=== PATIENT | male | born 1975 | race Caucasian/White ===

== ENCOUNTER 2018-05-17 10:19 | Emergency (ER) | payer SELFPAY ==
--- NOTE | 2018-05-17 10:41 | EDM.PDOC ---
ED HPI GENERAL MEDICAL PROBLEM - General Chief Complaint: Back Pain or Injury Stated Complaint: BACK PAIN Time Seen by Provider: 05/17/18 10:41 Source of Information: Reports: Patient History Limitations: Reports: No Limitations - History of Present Illness INITIAL COMMENTS - FREE TEXT/NARRATIVE: HISTORY AND PHYSICAL: History of present illness: Patient is a 43-year-old male here with complaint of low back pain. It began about 2-3 days ago, denies any recent injury or trauma. He states he did fall off of a ladder a couple of years ago ruptured kidney at that time. He denies any numbness or tingling down the legs, denies saddle anesthesia, loss of bowel or bladder control, lower extremity weakness, fevers or chills. Denies dysuria or hematuria. He is not taking anything OTC for his symptoms Review of systems: As per history of present illness and below otherwise all systems reviewed and negative. Past medical history: As per history of present illness and as reviewed below otherwise noncontributory. Surgical history: As per history of present illness and as reviewed below otherwise noncontributory. Social history: No reported history of drug or alcohol abuse. Family history: As per history of present illness and as reviewed below otherwise noncontributory. Physical exam: General: Patient sitting comfortably in no acute distress and nontoxic appearing HEENT: Atraumatic, normocephalic, pupils reactive, negative for conjunctival pallor or scleral icterus, mucous membranes moist, throat clear, neck supple, nontender, trachea midline. No meningeal signs. Lungs: Clear to auscultation, breath sounds equal bilaterally, chest nontender. Heart: S1S2, regular, negative for clicks, rubs, or overt murmur. Abdomen: Soft, nondistended, nontender. Negative for masses or hepatosplenomegaly. Negative for costovertebral tenderness. No rigidity, rebound , guarding. Pelvis: Stable nontender. Genitourinary: Deferred. Rectal: Deferred. Spine: No vertebral tenderness or step offs to palpation. Bilateral lumbar paraspinal tenderness to palpation. Extremities: Atraumatic, negative for cords or calf pain. Neurovascular unremarkable. Neuro: Awake, alert, oriented. Cranial nerves II through XII unremarkable. Cerebellum unremarkable. Motor and sensory unremarkable throughout. Exam nonfocal. Notes: Diagnostics: [employer]: Toradol 60mg IM Prescriptions: Tramadol (#12) Impression: Lumbar back pain Plan: 1. Heat or ice and alternate tylenol and motrin as needed. You may take tramadol as needed for severe pain, do not take while driving as it may make you drowsy. 2. Follow up with primary care provider 3. Return to ED as needed as discussed Definitive disposition and diagnosis as appropriate pending reevaluation and review of above. Lower Back Pain Score (Numeric/FACES): 7 - Related Data Allergies Allergy/AdvReac Type Severity Reaction Status Date / Time No Known Allergies Allergy Verified 05/17/18 10:31 Home Meds: Home Meds . [No Known Home Meds] 12/15/17 [History] Past Medical History - Past Health History Medical/Surgical History: Denies Medical/Surgical History Genitourinary History: Reports: Other (See Below) Other Genitourinary History: Hx of ruptured kidney - Infectious Disease History Infectious Disease History: Reports: Hepatitis C Social & Family History - Family History Family Medical History: Noncontributory - Tobacco Use Smoking Status *Q: Current Every Day Smoker Years of Tobacco use: 20 Packs/Tins Daily: 1 - Caffeine Use Caffeine Use: Reports: Soda - Recreational Drug Use Recreational Drug Use: No ED ROS GENERAL - Review of Systems Review Of Systems: ROS reveals no pertinent complaints other than HPI. ED EXAM,LOWER BACK PAIN/INJURY - Physical Exam Exam: See Below (see dictation) Course - Vital Signs Last Recorded V/S: Last Vital Signs Temp 97.4 F 05/17/18 10:28 Pulse 98 05/17/18 10:28 Resp 18 05/17/18 10:28 BP 111/74 05/17/18 10:28 Pulse Ox 96 05/17/18 10:28 - Orders/Labs/Meds Labs: Laboratory Tests 05/17/18 Range/Units 11:05 Urine Color YELLOW Urine Appearance CLEAR Urine pH 5.5 (5.0-8.0) Ur Specific Wilson >= 1.030 (1.001-1.035) Urine Protein NEGATIVE (NEGATIVE) mg/dL Urine Glucose (UA) NEGATIVE (NEGATIVE) mg/dL Urine Ketones NEGATIVE (NEGATIVE) mg/dL Urine Occult Blood NEGATIVE (NEGATIVE) Urine Nitrite NEGATIVE (NEGATIVE) Urine Bilirubin NEGATIVE (NEGATIVE) Urine Urobilinogen 0.2 (<2.0) EU/dL Ur Leukocyte Esterase NEGATIVE (NEGATIVE) Meds: Medications Discontinued Medications Generic Name Dose Route Start Last Admin Trade Name Jaron PRN Reason Stop Dose Admin Ketorolac Tromethamine 60 mg 05/17/18 10:46 05/17/18 11:09 Toradol IM 05/17/18 10:47 60 mg ONETIME ONE Administration Departure - Departure Time of Disposition: 11:39 Disposition: Home, Self-Care 01 Condition: Good Clinical Impression: Lumbar back pain - Discharge Information Referrals: PCP,None [Primary Care Provider] - Forms: ED Department Discharge Additional Instructions: The following information is given to patients seen in the emergency department who are being discharged to home. This information is to outline your options for follow-up care. We provide all patients seen in our emergency department with a follow-up referral. The need for follow-up, as well as the timing and circumstances, are variable depending upon the specifics of your emergency department visit. If you don't have a primary care physician on staff, we will provide you with a referral. We always advise you to contact your personal physician following an emergency department visit to inform them of the circumstance of the visit and for follow-up with them and/or the need for any referrals to a consulting specialist. The emergency department will also refer you to a specialist when appropriate. This referral assures that you have the opportunity for follow-up care with a specialist. All of these measure are taken in an effort to provide you with optimal care, which includes your follow-up. Under all circumstances we always encourage you to contact your private physician who remains a resource for coordinating your care. When calling for follow-up care, please make the office aware that this follow-up is from your recent emergency room visit. If for any reason you are refused follow-up, please contact the [facility] Emergency Department at and asked to speak to the emergency department charge nurse. [facility] [address] [place] [id number] [facility] [address] [place] [id number] 1. Heat or ice and alternate tylenol and motrin as needed. You may take tramadol as needed for severe pain, do not take while driving as it may make you drowsy. 2. Follow up with primary care provider 3. Return to ED as needed as discussed
[2018-05-17] MEDS ORDERED: Ketorolac 60 MG/2 ML SDV IM ONE (10:46)
== END 2018-05-17 11:49 | disposition home or self-care (01) ==
LOC: MW.ED 10:19
DX: M54.5 Low back pain (principal); F17.210 Nicotine dependence, cigarettes, uncomplicated
CPT/HCPCS: 81003; 96372; 99283; J1885

== ENCOUNTER 2019-01-09 05:02 | Emergency (ER) | payer OTHER ==
[2019-01-09] MEDS ORDERED: Ondansetron 4 MG/2 ML SDV IVPUSH ONE (05:13)
[2019-01-09] MEDS ORDERED: Sodium Chloride 0.9% 10 ML Syringe FLUSH PRN (05:13)
[2019-01-09] MEDS ORDERED: Sodium Chloride 0.9% 2.5 ML Syringe FLUSH PRN (05:13)
[2019-01-09] MEDS ORDERED: Sodium Chloride 0.9% 1,000 ML IV ONE (05:13)
[2019-01-09] MEDS ORDERED: Ketorolac 30 MG/ML SDV IVPUSH ONE (05:13)
[2019-01-09] MEDS ORDERED: HYDROmorphone 1 MG/ML Syringe IVPUSH ONE (05:13)
--- NOTE | 2019-01-09 05:14 | EDM.PDOC ---
<Rosey Lee - Last Filed: 01/09/19 06:48> ED HPI GENERAL MEDICAL PROBLEM - General Chief Complaint: Lower Extremity Injury/Pain Stated Complaint: AMB Time Seen by Provider: 01/09/19 05:04 - History of Present Illness INITIAL COMMENTS - FREE TEXT/NARRATIVE: HISTORY AND PHYSICAL: History of present illness: The patient is a 43-year-old male with no significant past medical history who presents via EMS with complaints of severe pain to his left knee that started after a fall this evening at 8 PM, approximately 9 hours ago. 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 He did not pass out or black out and has no head neck or back pain and has no chest pain no shortness of breath no abdominal pain or pelvis pain. He says he only had pain at his knee and he was able to get home and went and laid on the sofa and fell asleep but did not take any medications. He has been on the sofa since he got home and he previously ambulated on this knee. He called EMS due to the severe pain and they gave him intranasal fentanyl. The patient denies that he has pain at his hip or pelvis and only has pain at the distal femur and knee area. He has no ankle or foot pain and he has no sensory changes in his distal leg and foot. He has no other extremity complaints. Prior to these events last evening he was in his usual state of good health with no systemic complaints. He specifically tells me he does not have pain in his calcaneus. He says that any movement of his knee causes severe pain which radiates up and down his leg. Review of systems: As per history of present illness and below otherwise all systems reviewed and negative. Past medical history: As per history of present illness and as reviewed below otherwise noncontributory. Surgical history: As per history of present illness and as reviewed below otherwise noncontributory. Social history: No reported history of drug or alcohol abuse. Family history: As per history of present illness and as reviewed below otherwise noncontributory. Physical exam: General: Well-developed well-nourished thin man who is nontoxic and cooperative in the ED. Vital signs are noted by me HEENT: Atraumatic, normocephalic, pupils reactive, negative for conjunctival pallor or scleral icterus, mucous membranes moist, throat clear, neck supple, nontender, trachea midline. There are no evidence of any scalp defects deformities or tenderness and there is no midline step-offs tenderness defects of the cervical spine. There is no evidence of any facial injuries tenderness defects or deformities teeth and bite are intact as well as EOMs. Lungs: Clear to auscultation, breath sounds equal bilaterally, chest nontender. There are no defects deformities crepitus appreciated on the chest wall and no soft tissue injuries are seen Heart: S1S2, regular rate and rhythm no overt murmurs, negative for clicks, rubs , or JVD. Abdomen: Soft, nondistended, nontender. Negative for masses or hepatosplenomegaly. Negative for costovertebral tenderness. Pelvis: Stable nontender. There is no tenderness at the lateral left hip Genitourinary: Deferred. Rectal: Deferred. Extremities: At the right elbow there is a superficial abrasion but there is no soft tissue swelling palpable bony defects or deformities and only minimal tenderness here. At the left lower extremity there is no discrete hip or proximal femur tenderness in the thigh compartment is soft and not swollen, at the knee there is diffuse soft tissue swelling and effusion appreciated with exquisite tenderness but no malalignment is appreciated and deep palpation of the bony architecture is not possible due to patient's inability to tolerate the exam, distal tib-fib ankle foot calcaneus and talus are all intact without tenderness defects or deformities as are the toes. The only swelling is seen diffusely and circumferentially at the knee. Throughout the entire left lower extremity there is no evidence of any gross malalignment. The remainder the extremities have full range of motion without tenderness defects or deformities. The legs are negative for cords or calf pain. Neurovascular unremarkable. The dorsalis pedis and Posterior tibial artery is triphasic by Doppler and there is good cap refill and normal temperature in the ankle and foot. Neuro: Awake, alert, oriented. Cranial nerves II through XII unremarkable. Motor and sensory unremarkable throughout. Exam nonfocal. Back: There are no midline step-offs tenderness defects of the thoracic or lumbar spine no posterior rib or posterior pelvis tenderness and no soft tissue injuries are appreciated Diagnostics: X-ray of the pelvis left femur left knee left tib-fib The patient declined a right elbow x-ray Therapeutics: IV placement IV fluids Dilaudid Xiomarafran [id number]: Pictures of the patient's knee x-rays were sent to our orthopedic surgeon regional liaison Dr. Golden and after review he would like a CT scan to be performed as he is not sure what the appropriate treatment will be with those x-rays alone. I will endorse this case to Dr. Molina who will follow up the CT scan and call with that report. Impression: Fall with left knee injury Definitive disposition and diagnosis as appropriate pending reevaluation and review of above. left knee Pain Score (Numeric/FACES): 10 - Related Data Allergies Allergy/AdvReac Type Severity Reaction Status Date / Time No Known Allergies Allergy Verified 01/09/19 05:20 Home Meds: Home Meds traMADol HCl [Tramadol HCl] 50 mg PO Q6H PRN #16 tablet 01/09/19 [Rx] Past Medical History - Past Health History Medical/Surgical History: Denies Medical/Surgical History Genitourinary History: Reports: Other (See Below) Other Genitourinary History: Hx of ruptured kidney - Infectious Disease History Infectious Disease History: Reports: Hepatitis C Social & Family History - Family History Family Medical History: Noncontributory - Caffeine Use Caffeine Use: Reports: Soda Review of Systems - Review of Systems Review Of Systems: ROS reveals no pertinent complaints other than HPI. ED EXAM, GENERAL - Physical Exam Exam: See Below (See dictation) Course - Vital Signs Last Recorded V/S: Last Vital Signs Temp 97.7 F 01/09/19 05:02 Pulse 74 01/09/19 06:08 Resp 18 01/09/19 06:08 BP 121/70 01/09/19 06:08 Pulse Ox 96 01/09/19 06:08 - Orders/Labs/Meds Orders: Active Orders 24 hr Category Date Time Status Sodium Chloride 0.9% [Saline Flush] Med 01/09/19 05:13 Active 10 ml FLUSH ASDIRECTED PRN Sodium Chloride 0.9% [Saline Flush] Med 01/09/19 05:13 Active 2.5 ml FLUSH ASDIRECTED PRN Saline Lock Insert [OM.PC] Stat Oth 01/09/19 05:13 Ordered Medication Orders Sodium Chloride (Saline Flush) 10 ml FLUSH ASDIRECTED PRN PRN Reason: Keep Vein Open Sodium Chloride (Saline Flush) 2.5 ml FLUSH ASDIRECTED PRN PRN Reason: Keep Vein Open Meds: Medications Generic Name Dose Route Start Last Admin Trade Name Freq PRN Reason Stop Dose Admin Sodium Chloride 10 ml 01/09/19 05:13 Saline Flush FLUSH ASDIRECTED PRN Keep Vein Open Sodium Chloride 2.5 ml 01/09/19 05:13 Saline Flush FLUSH ASDIRECTED PRN Keep Vein Open Discontinued Medications Generic Name Dose Route Start Last Admin Trade Name Freq PRN Reason Stop Dose Admin Hydromorphone HCl 1 mg 01/09/19 05:13 01/09/19 06:08 Dilaudid IVPUSH 01/09/19 05:14 1 mg ONETIME ONE Administration Sodium Chloride 1,000 mls @ 999 mls/hr 01/09/19 05:13 01/09/19 06:08 Normal Saline IV 01/09/19 06:13 999 mls/hr STAT ONE Administration Ketorolac Tromethamine 30 mg 01/09/19 05:13 01/09/19 06:08 Toradol IVPUSH 01/09/19 05:14 30 mg ONETIME ONE Administration Ondansetron HCl 4 mg 01/09/19 05:13 01/09/19 06:08 Zofran IVPUSH 01/09/19 05:14 4 mg ONETIME ONE Administration Departure - Departure Disposition: Home, Self-Care 01 Condition: Good Clinical Impression: Tibial plateau fracture, left Qualifiers: Encounter type: initial encounter Fracture type: closed Qualified Code(s): S82.142A - Displaced bicondylar fracture of left tibia, initial encounter for closed fracture Fracture, fibula, proximal Qualifiers: Encounter type: initial encounter Fracture type: closed Fracture morphology: unspecified fracture morphology Laterality: left Qualified Code(s): S82.832A - Other fracture of upper and lower end of left fibula, initial encounter for closed fracture - Discharge Information Prescriptions: traMADol HCl [Tramadol HCl] 50 mg PO Q6H PRN #16 tablet PRN Reason: Pain Referrals: Glen Golden MD [Physician] - 01/11/19 9:30 am Forms: ED Department Discharge Additional Instructions: The following information is given to patients seen in the emergency department who are being discharged to home. This information is to outline your options for follow-up care. We provide all patients seen in our emergency department with a follow-up referral. The need for follow-up, as well as the timing and circumstances, are variable depending upon the specifics of your emergency department visit. If you don't have a primary care physician on staff, we will provide you with a referral. We always advise you to contact your personal physician following an emergency department visit to inform them of the circumstance of the visit and for follow-up with them and/or the need for any referrals to a consulting specialist. The emergency department will also refer you to a specialist when appropriate. This referral assures that you have the opportunity for follow-up care with a specialist. All of these measure are taken in an effort to provide you with optimal care, which includes your follow-up. Under all circumstances we always encourage you to contact your private physician who remains a resource for coordinating your care. When calling for follow-up care, please make the office aware that this follow-up is from your recent emergency room visit. If for any reason you are refused follow-up, please contact the [facility] Emergency Department at and asked to speak to the emergency department charge nurse. Take meds as directed, follow up with your primary care physician, return to ER if symptoms worsen or change. [facility] - [facility] [address], [address] [place] [address] <Urmila Molina - Last Filed: 01/09/19 09:03> ED HPI GENERAL MEDICAL PROBLEM - History of Present Illness INITIAL COMMENTS - FREE TEXT/NARRATIVE: CT OF LEFT KNEE SHOWS TIBIAL PLATEAU AND SMALL FIBULA FRACTURE THAT'S NONDISPLACED, DR. MALAGON WAS CONSULTED AND HE LOOKED AT THE FILMS AND REQUESTED PATIENT BE PUT IN A HINGED KNEE IMMOBILIZER FROM [place], KEPT NONWEIGHTBEARINGAND TO FOLLOW-UP IN HIS OFFICE IN 2 DAYS. sHE IS BEING DISCHARGED WITH CRUTCHES, BRACE AND TRAMADOL. Departure - Departure Time of Disposition: 09:02 - Discharge Information *PRESCRIPTION DRUG MONITORING PROGRAM REVIEWED*: Not Applicable *COPY OF PRESCRIPTION DRUG MONITORING REPORT IN PATIENT JESSIE: Not Applicable
--- NOTE | 2019-01-09 06:47 | CR ---
INDICATION: Fall. TECHNIQUE: Two views pelvis. Three views left femur. Three views left knee. Four views left tibia and fibula. FINDINGS: Mildly displaced acute comminuted fracture left proximal fibula. Linear lucency along the articular surface of the left lateral tibial plateau and ill-defined irregular lucency involving the left lateral tibial plateau only seen on the frontal view is suggestive of a fracture of the left lateral tibial plateau. If clinically desired to further evaluate the knee pathology more accurately a CT could be performed. No other acute fracture or dislocation in the pelvis, left femur, left knee, left tibia, or left fibula. Small area of sclerosis in right mid to upper iliac bone versus small overlying opaque density. Marked soft tissue swelling distal left thigh anteriorly extending to the anterior left knee the lesser extent. Large sized left knee effusion. Dictated by Kee Starr MD @ Jan 09 2019 6:39AM Signed by Dr. Kee Starr @ Jan 09 2019 6:46AM
--- NOTE | 2019-01-09 06:49 | CR ---
INDICATION: Fall. TECHNIQUE: Two views pelvis. Three views left femur. Three views left knee. Four views left tibia and fibula. FINDINGS: Mildly displaced acute comminuted fracture left proximal fibula. Linear lucency along the articular surface of the left lateral tibial plateau and ill-defined irregular lucency involving the left lateral tibial plateau only seen on the frontal view is suggestive of a fracture of the left lateral tibial plateau. If clinically desired to further evaluate the knee pathology more accurately a CT could be performed. No other acute fracture or dislocation in the pelvis, left femur, left knee, left tibia, or left fibula. Small area of sclerosis in right mid to upper iliac bone versus small overlying opaque density. Marked soft tissue swelling distal left thigh anteriorly extending to the anterior left knee the lesser extent. Large sized left knee effusion. Dictated by Kee Starr MD @ Jan 09 2019 6:48AM Signed by Dr. Kee Starr @ Jan 09 2019 6:48AM
--- NOTE | 2019-01-09 06:49 | CR ---
INDICATION: Fall. TECHNIQUE: Two views pelvis. Three views left femur. Three views left knee. Four views left tibia and fibula. FINDINGS: Mildly displaced acute comminuted fracture left proximal fibula. Linear lucency along the articular surface of the left lateral tibial plateau and ill-defined irregular lucency involving the left lateral tibial plateau only seen on the frontal view is suggestive of a fracture of the left lateral tibial plateau. If clinically desired to further evaluate the knee pathology more accurately a CT could be performed. No other acute fracture or dislocation in the pelvis, left femur, left knee, left tibia, or left fibula. Small area of sclerosis in right mid to upper iliac bone versus small overlying opaque density. Marked soft tissue swelling distal left thigh anteriorly extending to the anterior left knee the lesser extent. Large sized left knee effusion. Dictated by Kee Starr MD @ Jan 09 2019 6:47AM Signed by Dr. Kee Starr @ Jan 09 2019 6:47AM
--- NOTE | 2019-01-09 08:05 | CT ---
INDICATION: Pain after injury. Assess fracture. COMPARISON: Plain film 09 January 2019. TECHNIQUE: Multi detector imaging left knee with axial, coronal and sagittal reformats. FINDINGS: Large lipohemarthrosis. Intact femur and patella. Comminuted mildly impacted fracture through the central plateau and lateral plateau of the tibia. Minimal 1 mm step-off incongruity in the base of the lateral spine up to 5 mm concave depression through the anterior lateral margin of the plateau with slight anterior downsloping. Nondisplaced fracture line extends across to the base of the medial spine but not into the medial plateau. Fracture is intra-articular to the knee as well as the proximal tibiofibular joint. Burst type fracture of the fibular head with incongruity of the joint from buckling of the tibial cortex as well as depression of the fibular cortex. No intra-articular fragment appreciated. Vertical extension of the tibial fracture at the anterior lateral margin extends roughly 3.8 cm from the tibial plateau. IMPRESSION: 1. Comminuted mildly impacted intra-articular fracture of the lateral tibial plateau. 2. Burst type fracture of the fibular head with moderate incongruity of the proximal tibia fibular joint. 3. Large lipohemarthrosis. Please note that all CT scans at this facility use dose modulation, iterative reconstruction, and/or weight-based dosing when appropriate to reduce radiation dose to as low as reasonably achievable. Dictated by Grupo Barbosa MD @ Jan 09 2019 8:19AM Signed by Dr. Grupo Barbosa @ Jan 09 2019 8:19AM
== END 2019-01-09 09:19 | disposition home or self-care (01) ==
LOC: MW.ED 05:02
DX: S82.142A Displaced bicondylar fracture of left tibia, initial encounter for closed fracture (principal); S82.832A Other fracture of upper and lower end of left fibula, initial encounter for closed fracture; W11.XXXA Fall on and from ladder, initial encounter; Y92.89 Other specified places as the place of occurrence of the external cause; Y93.89 Activity, other specified; Y99.0 Civilian activity done for income or pay
CPT/HCPCS: 72170; 73552; 73562; 73590; 73700; 96361; 96374; 96375; 99284; J1170; J1885; J2405; J7040

== ENCOUNTER 2020-03-08 18:45 | Emergency (ER) | payer SELFPAY ==
[2020-03-08] MEDS ORDERED: Moxifloxacin 0.5% Ophth Soln 3 ML Bottle EYELF ONE (20:03)
--- NOTE | 2020-03-08 20:33 | EDM.PDOC ---
ED HPI GENERAL MEDICAL PROBLEM - General Chief Complaint: Eye Problems Stated Complaint: LT EYE PROBLEM Time Seen by Provider: 03/08/20 20:00 - History of Present Illness INITIAL COMMENTS - FREE TEXT/NARRATIVE: HISTORY AND PHYSICAL: History of present illness: This is a healthy 45-year-old gentleman who presents ER today with loss of vision in his left eye and recurrence of a left corneal ulcer. Patient reports approximately 3 months ago he accidentally injured his left eye with a razor while cutting an object. He reports that he went to see an eye doctor, he believes it was Dr. Mckay, who gave him an antibiotic drop to place in his eye every hour and most followed closely by Dr. Mckay until resolution of the infection. Patient reports that he has been doing well for the last several weeks. He reports that yesterday night prior to going to sleep he felt a little bit of irritation in his left eye when he woke up this morning he had a significant amount of opacification and loss of vision to his left eye. 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 Patient reports no significant discomfort to his eye. Patient denies any recent trauma to the eye. Patient denies any recent fevers, shakes, chills, nausea, vomiting, diarrhea. Patient denies any abdominal pain or chest pain. Patient denies any history of hypertension, diabetes, liver, lung, kidney problems. Patient has no known drug allergies. Patient denies any alcohol or drugs. Review of systems: As per history of present illness and below otherwise all systems reviewed and negative. Past medical history: As per history of present illness and as reviewed below otherwise noncontributory. Surgical history: As per history of present illness and as reviewed below otherwise noncontributory. Social history: No reported history of drug or alcohol abuse. Family history: As per history of present illness and as reviewed below otherwise noncontributory. Physical exam: Constitutional: Patient is oriented to person, place, and time. Appears well- developed and well-nourished. No distress. HEENT: Moist mucous membranes Head: Normocephalic and atraumatic Eyes: Right eye exhibits no discharge. Left eye exhibits no discharge. No scleral icterus Neck: Normal range of motion. No tracheal deviation present. Cardiovascular: Normal rate and regular rhythm. Pulmonary: Effort normal, no respiratory distress. Abdominal: No distention Musculoskeletal: Normal range of motion Neurologic: Alert and oriented to person, place and time. Skin: [place], warm and dry. Psychiatric: Normal mood and affect. Behavior is normal. Judgment and thought content normal. Nursing note and vital signs have been reviewed Patient's ER physical exam is significant for a ulcerative lesion to his left cornea which is slightly inferior to his iris. It does appear that his iris is involved as it is extremely difficult to visualize the iris itself. Patient's pupil is 2 mm and sluggishly reactive to light. Patient has no edema identified to his lids. Patient has no drainage from his eye. Patient reports he is only able to identify light and dark. He is unable to visualize anything other than shining a light in his eye. This patient was seen and evaluated during the 2019 SARS-CoV-2 novel coronavirus pandemic period. Community viral transmission is ongoing at time of this encounter and the emergency department is operating under pandemic response procedures. Therapeutics: Vigamox 2 drops to left eye. Assessment and plan: I have attempted to contact Dr. Miller, Dr. Ayala, and Dr. Mckay for assistance with this patient however, they were not on-call and no answers on the cell phone was obtained. We did call [facility] and spoke to Dr. Nicolas Mayo he was able to assist us with preliminary care of this patient. Dr. Mayo has recommended that the patient get started on Vigamox 2 drops every 1 hour until he is reevaluated by an commercial food instructor. Dr. Mayo has recommended the patient follow-up with his primary commercial food instructor, Dr. Mckay tomorrow morning. If he is unable to be seen by Dr. Mckay tomorrow morning, Dr. Mayo would be happy to see him in his office however is [facility]. Dr. Nicolas Mayo's office phone number is [phone]. Patient has been instru cted to call Dr. Mckay in the morning for an appointment. If he is unable to be seen that he is to call Dr. Mayo and they will ensure continuity of care tomorrow. He has also been instructed on the importance of taking his medication every hour. He has been instructed to set his alarm clock this evening that he wakes up every hour to take his antibiotic drop. Patient reports that this is what he had to do 3 months ago with his prior infection and he does not anticipate any issue with compliance with medication. Reassessment at the time of disposition demonstrates that the patient is in no acute distress. The patient has remained stable throughout the entire ED visit and is without objective evidence for acute process requiring urgent intervention or hospitalization. The patient is stable for discharge, counseling is provided as documented above, discussed symptomatic treatment and specific conditions for return. I have spoken with the patient/caregiver and discussed todays findings, in addition to providing specific details for the plan of care. Questions are answered and there is agreement with the plan. Definitive disposition and diagnosis as appropriate pending reevaluation and review of above. March 09, 2020 7:28 PM: Phone call follow-up made in order to assure continuity of care. No answer. Voice message left to call if unable to make an appointment to see his eye doctor. L headache Pain Score (Numeric/FACES): 8 - Related Data Allergies Allergy/AdvReac Type Severity Reaction Status Date / Time No Known Allergies Allergy Verified 03/08/20 18:51 Home Meds: Home Meds . [No Known Home Meds] 03/08/20 [History] Past Medical History - Past Health History Medical/Surgical History: Denies Medical/Surgical History Other HEENT History: eye injury Genitourinary History: Reports: Other (See Below) Other Genitourinary History: Hx of ruptured kidney Other Musculoskeletal History: broken L knee - Infectious Disease History Infectious Disease History: Reports: Hepatitis C Social & Family History - Family History Family Medical History: No Pertinent Family History - Caffeine Use Caffeine Use: Reports: Soda - Recreational Drug Use Recreational Drug Use: No ED ROS GENERAL - Review of Systems Review Of Systems: See Below ED EXAM GENERAL W FULL EYE - Physical Exam Exam: See Below Course - Vital Signs Last Recorded V/S: Last Vital Signs Temp 98.2 F 03/08/20 20:47 Pulse 95 03/08/20 20:47 Resp 18 03/08/20 20:47 BP 132/78 03/08/20 20:47 Pulse Ox 99 03/08/20 20:47 - Orders/Labs/Meds Meds: Medications Discontinued Medications Generic Name Dose Route Start Last Admin Trade Name Freq PRN Reason Stop Dose Admin Moxifloxacin HCl 2 ml 03/08/20 20:03 03/08/20 20:17 Vigamox 0.5% Tyler Rush EYELF 03/08/20 20:04 2 drop ONETIME ONE Administration Departure - Departure Time of Disposition: 20:34 Disposition: Home, Self-Care 01 Condition: Good Clinical Impression: Corneal ulcer - Discharge Information Instructions: Corneal Ulcer Referrals: PCP,None [Primary Care Provider] - Forms: ED Department Discharge Additional Instructions: You were seen and evaluated in the ER today secondary to a corneal ulcer. I have discussed your case with Dr. Mayo at [facility] in [place]. He has recommended that we start you on Vigamox drops. You will have to take 2 drops every hour until you are reevaluated by the eye doctor. This means that you will need to set your alarm clock tonight for every hour in order to get the medication. This is extremely important to decrease the likelihood of losing her eye completely. He is also recommended that you absolutely must see an eye doctor tomorrow. We recommend that you call your prior commercial food instructor, Dr. Mckay at [phone] in the morning to see if they can see you tomorrow. If for any reason Dr. Mckay is unable to see you, Dr. Mayo said that he would be more than happy to see you in his office up in [facility]. Dr. Lopez phone number is [phone]. Please return to the ER if there is any issues or confusion with being seen by an commercial food instructor tomorrow. The following information is given to patients seen in the emergency department who are being discharged to home. This information is to outline your options for follow-up care. We provide all patients seen in our emergency department with a follow-up referral. The need for follow-up, as well as the timing and circumstances, are variable depending upon the specifics of your emergency department visit. If you don't have a primary care physician on staff, we will provide you with a referral. We always advise you to contact your personal physician following an emergency department visit to inform them of the circumstance of the visit and for follow-up with them and/or the need for any referrals to a consulting specialist. The emergency department will also refer you to a specialist when appropriate. This referral assures that you have the opportunity for follow-up care with a specialist. All of these measure are taken in an effort to provide you with optimal care, which includes your follow-up. Under all circumstances we always encourage you to contact your private physician who remains a resource for coordinating your care. When calling for follow-up care, please make the office aware that this follow-up is from your recent emergency room visit. If for any reason you are refused follow-up, please contact the [facility] Emergency Department at and asked to speak to the emergency department charge nurse. [facility] - Primary Care [address] [place] [address] [id number] [address] [address] Sepsis Event Note (ED) - Evaluation Sepsis Screening Result: No Definite Risk
== END 2020-03-08 20:47 | disposition home or self-care (01) ==
LOC: MW.ED 18:45
DX: H16.002 Unspecified corneal ulcer, left eye (principal)
CPT/HCPCS: 99283; A9270-GY

== ENCOUNTER 2020-04-19 00:39 | Emergency (ER) | payer SELFPAY ==
[2020-04-19] MEDS ORDERED: Ibuprofen 800 MG Tab PO ONE (01:03)
--- NOTE | 2020-04-19 01:14 | EDM.PDOC ---
ED HPI GENERAL MEDICAL PROBLEM - General Chief Complaint: Skin Complaint Stated Complaint: POSSIBLE FROSTBITE ON HANDS Time Seen by Provider: 04/19/20 00:50 - History of Present Illness INITIAL COMMENTS - FREE TEXT/NARRATIVE: 45-year-old male presenting with severe pain in his fingers after working outside for an hour trying to open his car without gloves and whether that is well below 0. He reports severe and constant pain he tried to warm his hands in the shower but this was very painful. Initial injury occurred a little over 2 hours ago. No other complaints or injury. Patient's tetanus is up-to-date. Bilateral Hand Pain Score (Numeric/FACES): 10 - Related Data Allergies Allergy/AdvReac Type Severity Reaction Status Date / Time No Known Allergies Allergy Verified 03/08/20 18:51 Home Meds: Home Meds . [No Known Home Meds] 03/08/20 [History] Past Medical History - Past Health History Medical/Surgical History: Denies Medical/Surgical History Other HEENT History: eye injury Genitourinary History: Reports: Other (See Below) Other Genitourinary History: Hx of ruptured kidney Musculoskeletal History: Reports: Other (See Below) Other Musculoskeletal History: broken L knee - Infectious Disease History Infectious Disease History: Reports: Hepatitis C Social & Family History - Family History Family Medical History: No Pertinent Family History - Caffeine Use Caffeine Use: Reports: Soda - Recreational Drug Use Recreational Drug Use: No ED ROS GENERAL - Review of Systems Review Of Systems: See Below Free Text/Narrative/Comment: General: No fever. Skin: Per HPI Musculoskeletal: Per HPI ED EXAM, SKIN/RASH Exam: See Below Text/Narrative:: General Appearance: No acute distress, appears comfortable Skin: No rash HEENT: Normocephalic/atraumatic, sclera anicteric, mucous membranes moist Neck: Normal range of motion Musculoskeletal: 2+ radial pulses bilaterally he has significant tenderness over the tips of his fingers. He has pale flesh over the distal phalanxes of the thumb and fingers of the bilateral hands the skin changes do not extend beyond the DIP. Neurologic: Awake, alert, no obvious deficits, moving all extremities Psychiatric: Appropriate, cooperative Course - Vital Signs Last Recorded V/S: Last Vital Signs Temp 96.9 F 04/19/20 00:48 Pulse 86 04/19/20 00:48 Resp 20 04/19/20 00:48 BP 131/95 H 04/19/20 00:48 Pulse Ox 96 04/19/20 00:48 - Orders/Labs/Meds Meds: Medications Discontinued Medications Generic Name Dose Route Start Last Admin Trade Name Jaron PRN Reason Stop Dose Admin Ibuprofen 800 mg 04/19/20 01:03 04/19/20 01:09 Motrin PO 04/19/20 01:04 800 mg ONETIME ONE Administration Departure - Departure Time of Disposition: 02:13 Disposition: Home, Self-Care 01 Condition: Good Clinical Impression: Frostbite - Discharge Information *PRESCRIPTION DRUG MONITORING PROGRAM REVIEWED*: Not Applicable *COPY OF PRESCRIPTION DRUG MONITORING REPORT IN PATIENT JESSIE: Not Applicable Instructions: Frostbite, [id number] Forms: ED Department Discharge Additional Instructions: It is very important that you keep your hands out of the cold. The majority of your fingers appear now warm and well-perfused and they should do well. I do have some concerns about the very tip of your left thumb. Please keep a careful eye on this area. If you notice worsening blistering any type of wound develops any drainage of any kind then please return to the ER. Otherwise please follow-up with the primary care clinic. [facility] - Primary Care [address] [place] [address] [place] [address] The following information is given to patients seen in the emergency department who are being discharged to home. This information is to outline your options for follow-up care. We provide all patients seen in our emergency department w ith a follow-up referral. The need for follow-up, as well as the timing and circumstances, are variable depending upon the specifics of your emergency department visit. If you don't have a primary care physician on staff, we will provide you with a referral. We always advise you to contact your personal physician following an emergency department visit to inform them of the circumstance of the visit and for follow-up with them and/or the need for any referrals to a consulting specialist. The emergency department will also refer you to a specialist when appropriate. This referral assures that you have the opportunity for follow-up care with a specialist. All of these measure are taken in an effort to provide you with optimal care, which includes your follow-up. Under all circumstances we always encourage you to contact your private physician who remains a resource for coordinating your care. When calling for follow-up care, please make the office aware that this follow-up is from your recent emergency room visit. If for any reason you are refused follow-up, please contact the [facility] Emergency Department at and asked to speak to the emergency department charge nurse. Sepsis Event Note (ED) - Evaluation Sepsis Screening Result: No Definite Risk - Focused Exam Vital Signs: Vital Signs Temp Pulse Resp BP Pulse Ox 04/19/20 00:48 96.9 F 86 20 131/95 H 96 - Assessment/Plan Assessment:: 45-year-old male presenting with signs and symptoms most consistent with frostbite of the bilateral fingers that is not yet fully rewarmed. No current wounds or blistering is noted. The patient's tetanus is up-to-date. Extremity appears to be already partially rewarmed we do not have the ability to accurately monitor or provide hydrotherapy at this facility and so warm blankets have been applied and we will continue to reassess and rotate. Currently, the patient's involved tissue does not extend beyond the distal phalanx and so he does not meet criteria for any type of imaging or thrombolysis therapy. Depending on the appearance when rewarmed I anticipate a Grade 1 or Grade 2 frostbite. 0212: On rewarming the thumb and fingers of the right hand are warm and erythematous there is no sign of residual cyanosis arguing for a grade 1 injury. On the left hand the fingers have a similar appearance consistent with grade 1 injury. However the tip of the left thumb does have some cyanosis starting at the distal nailbed and's rating distally it is well away from the interphalangeal joint there is no blistering or wound at this time. Given this I see no indication for transfer to a burn center for emergent evaluation at this time no indication for antibiotics. Strict return precautions discussed and understood patient will follow up with primary care he will return to the ER for any worsening symptoms.
== END 2020-04-19 02:18 | disposition home or self-care (01) ==
LOC: MW.ED 00:39
DX: T33.522A Superficial frostbite of left hand, initial encounter (principal); T33.521A Superficial frostbite of right hand, initial encounter; X31.XXXA Exposure to excessive natural cold, initial encounter
CPT/HCPCS: 99283; A9270; 99282

== ENCOUNTER 2021-03-07 23:42 | Emergency (ER) | payer SELFPAY ==
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
== END 2021-03-08 00:14 | disposition home or self-care (01) ==
LOC: MW.ED 23:42
DX: T33.531A Superficial frostbite of right finger(s), initial encounter (principal); Z72.0 Tobacco use; X31.XXXA Exposure to excessive natural cold, initial encounter
CPT/HCPCS: 99283

== ENCOUNTER 2021-03-20 18:03 | Emergency (ER) | payer SELFPAY | END 2021-03-20 18:46 | disposition home or self-care (01) | LOC: MW.ED 18:03 | DX: T33.531D Superficial frostbite of right finger(s), subsequent encounter (principal); X31.XXXD Exposure to excessive natural cold, subsequent encounter | CPT/HCPCS: 99283 ==

== ENCOUNTER 2021-03-24 11:10 | Emergency (ER) | payer SELFPAY ==
[2021-03-24] MEDS ORDERED: Ketorolac 60 MG/2 ML SDV IM ONE (11:43)
== END 2021-03-24 12:14 ==
LOC: MW.ED 11:10
DX: T33.531A Superficial frostbite of right finger(s), initial encounter (principal); X31.XXXA Exposure to excessive natural cold, initial encounter
CPT/HCPCS: 96372; 99282; J1885

== ENCOUNTER 2021-05-25 02:04 | Emergency (ER) | payer SELFPAY | END 2021-05-25 06:02 | disposition home or self-care (01) | LOC: MW.ED 02:04 | DX: T40.1X1A Poisoning by heroin, accidental (unintentional), initial encounter (principal); Z72.0 Tobacco use | CPT/HCPCS: 99283; 99285 ==

== ENCOUNTER 2021-09-29 03:36 | Emergency (ER) | payer SELFPAY ==
[2021-09-29] MEDS ORDERED: predniSONE 20 MG Tab PO ONE (05:18)
== END 2021-09-29 05:30 | disposition home or self-care (01) ==
LOC: MW.ED 03:36
DX: B34.9 Viral infection, unspecified (principal); F17.200 Nicotine dependence, unspecified, uncomplicated; Z20.822 Contact with and (suspected) exposure to COVID-19
CPT/HCPCS: 87635; 99283; A9270; U0002

== ENCOUNTER 2022-02-22 14:11 | Emergency (ER) | payer SELFPAY ==
[2022-02-22] MEDS ORDERED: Sodium Chloride 0.9% 1,000 ML IV ONE (15:07)
[2022-02-22] MEDS ORDERED: Ondansetron 4 MG/2 ML SDV IVPUSH ONE (15:07)
[2022-02-22] MEDS ORDERED: HYDROmorphone 1 MG/ML Syringe IVPUSH ONE (15:07)
[2022-02-22] MEDS ORDERED: Ketorolac 30 MG/ML SDV IVPUSH ONE (15:53)
[2022-02-22 16:31] LABS: CARBON DIOXIDE,CO2 30.4 mmol/L (21.0-32.0); POTASSIUM,K 3.6 mmol/L (3.5-5.1)
[2022-02-22] MEDS ORDERED: Iopamidol 755 MG/ML 500 ML Multipack Bottle IVPUSH STA (17:08)
== END 2022-02-22 18:38 | disposition home or self-care (01) ==
LOC: MW.ED 14:11
DX: K20.90 Esophagitis, unspecified without bleeding (principal); Z21 Asymptomatic human immunodeficiency virus [HIV] infection status
CPT/HCPCS: 36415; 71260; 74177; 80053; 83690; 85025; 96361; 96374; 96375; 99284; J1885; J2405; J7030; Q9967